=== PATIENT | female | born 1970 | race Caucasian/White ===

== ENCOUNTER 2025-03-02 00:35 | Day surgery (SDC) | payer BC, SELFPAY ==
[2024-12-01 15:02] VITALS: BMI 25.0
--- OUTSIDE RECORDS SUMMARY | 2024-12-15 02:57 | XMS_ITS | Referral Summary ---
Author Organization [id number] Address [address] [place] [phone] Care Team Providers Care Rooming House Inspector Name Role Phone Ashley Tomlin MD Primary Care Provider Encounters Date Type Department Care Team Description 12/11/2024 Telephone [facility] Primary Care [address] [place] [phone] Ashley Tomlin MD Symptom Based Call 11/10/2024 [facility] [address] [place] [phone] Ashley Mcdermott MD 11/03/2024 10:35 AM PATTERN DATA OPERATOR Office Visit [facility] [address] [place] [phone] Ashley Mcdermott MD Routine gynecological examination (Primary Dx); Pap smear for cervical cancer screening; Screening mammogram for breast cancer; Extremely dense tissue of both breasts on mammography; Yeast infection of the skin; Cervical cancer screening 09/22/2024 Orders Only [facility] [address] [place] [phone] Ashley Mcdermott MD 09/22/2024 Telephone [facility] Primary Care [address] [place] [phone] Ashley Tomlin MD Medical Question/Miscellaneous 09/22/2024 Telephone [facility] [address] [place] [phone] Ashley Mcdermott MD Rx needed (P) from Last 3 Months Allergies No known active allergies Medications nystatin powderIndicatio ns:Yeast infection of the skin Apply topically 4 (four) times a day 15 g 1 5 11/03/19 26 Active Active Problems Problem Noted Date Diagnosed Date Dense breasts 10/31/2023 Osteoporosis screening 10/31/2023 Mixed hyperlipidemia 08/22/2022 Assessment & Plan (08/22/2022 9:03 AM CDT): I recommend low fat diet. Avoid fried fatty foods, butter, red meats, full fat dairy products, baked goods. Focus diet on lean protein (skinless chicken, seafood, nuts, legumes) and non-starchy veggies. Immunizations Immunization Administration Dates Next Due Influenza, Unspecified 08/04/2024(Deferr ed: Patient Refused),07/22/2022,07/25/2021(Deferred: Patient Refused) Social History Tobacco Use Types Packs/Day Years Used Date Smoking Tobacco: Never Tobacco Cessation:Counseling Given: Not Answered AUDIT-C Answer Date Recorded Q1: How often do you have a drink containing alcohol? Never 12/27/2023 Q2: How many drinks containi ng alcohol do you have on a typical day when you are drinking? Patient does not drink Q3: How often do you have si x or more drinks on one occasion? Never 12/27/2023 PHQ-2 Answer Date Recorded PHQ-2 Total Score (If total score is 3 or more points, staff should administer the PHQ-9) 0 08/04/2024 Comments No Sex and Gender Information Value Date Recorded Sex Assigned at Not on file Legal Sex Female 8:17 AM PATTERN DATA OPERATOR Gender Identity Not on file Sexual Orientation Not on file Last Filed Vital Signs Vital Sign Reading Time Taken Comments Blood Pressure 112/82 11/03/2024 10:46 AM PATTERN DATA OPERATOR Pulse 79 08/04/2024 2:33 PM CDT Temperature 36.6 C (97.9 F) 08/04/2024 2:33 PM CDT Respiratory Rate - - Oxygen Saturation 98% 08/04/2024 2:33 PM CDT Inhaled Oxygen Concentration - - Weight 74.4 kg (164 lb) 11/03/2024 10:46 AM PATTERN DATA OPERATOR Height 162.6 cm (5' 4 ) 08/04/2024 2:33 PM CDT Body Mass Index 28.15 08/04/2024 2:33 PM CDT Plan of Treatment Not on file Procedures Procedure Name Priority Date/Time Associated Diagnosis Comments SCAN - RADIOLOGY/IMAGING 11/10/2024 8:26 AM PATTERN DATA OPERATOR PAP AND HPV, REFLEX TO HPV GENOTYPES Routine 11/03/2024 11:28 AM PATTERN DATA OPERATOR Cervical cancer screening MAMMOGRAPHY Routine 11/09/2022 COLONOSCOPY Routine 05/07/2018 from Last 3 Months or Most Recently Relevant to Health Maintenance Results * SCAN - RADIOLOGY/IMAGING (11/10/2024 8:26 AM PATTERN DATA OPERATOR) Anatomical Region Laterality Modality Other Ashley Mcdermott MD Edited Result - Final * Pap and HPV, reflex to HPV Genotypes (11/03/2024 11:28 AM PATTERN DATA OPERATOR) Clinical indication Comment [facility] - 01 Comment: NEGATIVE FOR INTRAEPITHELIAL LESION OR MALIGNANCY. CELLULAR CHANGES ASSOCIATED WITH ATROPHY ARE PRESENT. Specimen adequacy: Comment [facility] - 01 Comment: Satisfactory for evaluation. Endocervical component may not be distinguished in cases of atrophy. Clinician provided ICD10 Comment [facility] - 01 Comment:Z12.4 Performed by Comment [facility] - 01 Comment:Clarice Saleh, Cytot echnologist (ASCP) . . [facility] - 01 Note: Comment [facility] - 01 Comment: The Pap smear is a screening test designed to aid in the detection of premalignant and malignant conditions of the uterine cervix. It is not a diagnostic procedure and should not be used as the sole means of detecting cervical cancer. Both false-positive and false-negative reports do occur. Test methodology Comment [facility] - 01 Comment: This liquid based ThinPrep(R) pap test was screened with the use of an image guided system. HPV Aptima Negative Negative [facility] 02 Comment: This nucleic acid amplification test detects fourteen high-risk HPV types (16,18,31,33,35,39,45,51,52,56,58,59,66,68) without differentiation. HPV Genotype Reflex Comment [facility] - 01 Comment:Criteria not met, HP V Genotype not performed. Thin prep-Endocervical 11/03/2024 11:28 AM PATTERN DATA OPERATOR 11/03/2024 Narrative [facility] - 11/05/2024 4:09 PM PATTERN DATA OPERATOR Performed at: - [facility] [id number] Marine Fisheries Technician: Leandra Hodgson MD, Phone: [phone] Performed at: - [facility] [id number] Marine Fisheries Technician: Leandra Hodgson MD, Phone: [phone] Specimen Comment: Source.............Cervix;Endocervix Specimen Comment: No. of containers..01 ThinPrep Vial Ashley Mcdermott MD LAB CYTOLOGY ORDERABLES Final Result [facility] - 01 [facility] 02 * (ABNORMAL) MAMMOGRAPHY (11/09/2022) Mammography Abnormal Maryam Samuel MD HEALTH MAINTENANCE Final Result * COLONOSCOPY (05/07/2018) Scribed Colonoscopy Normal Maryam Samuel MD HEALTH MAINTENANCE Final Result from Last 3 Months or Most Recently Relevant to Health Maintenance Insurance [facility] ANTHEM ACCESS ANTHEM ACCESS Care Teams Rooming House Inspector Relationship Specialty Start Date End Date Ashley Tomlin MD [address] [place], [place] [phone] (Work) PCP - General Internal Medicine 08/22/22
--- OUTSIDE RECORDS SUMMARY | 2024-12-15 02:57 | XMS_ITS | Clinical Summary ---
Author Organization [facility] Address [address] [place] [id number] Care Team Providers Care Sheet Metal Superintendent Name Role Phone Unavailable Primary Care Provider Unavailabl e Social History Tobacco Use Types Packs/Day Years Used Date Smoking Tobacco: Never Assessed Comments Unknown Sex and Gender Information Value Date Recorded Sex Assigned at Not on file Legal Sex Female 7:24 PM CDT Gender Identity Not on file Sexual Orientation Not on file Plan of Treatment Health Maintenance Due Date Last Done Comments Cervical Cancer Screening Pa p Smear (Age 30 to 64) Every 3 Years 1970 Colorectal Cancer Screening Colonoscopy (10 Years) 1970 Annual Physical 1973 Hepatitis C 1988 DTaP, Tdap and Td Vaccines ( 1 - Tdap) 1989 Hepatitis B Vaccines (1 of 3 - 19+ 3-dose series) 1989 Cervical Cancer Screening Pa p with HPV Testing (Age 30 to 64) Every 5 Years 2000 Cervical Cancer Screening with HPV 2000 Mammogram Screening 2010 Zoster Vaccines (1 of 2) 2020 COVID-19 Vaccine (2023-2 5 season) 2024 Influenza Adult (#1) 2024 Meningococcal B Vaccine Aged Out No l onger eligible based on patient's age to complete this topic Meningococcal Vaccine Aged Out No fermín fabiola eligible based on patient's age to complete this topic Pneumococcal Vaccine: Pediat rics (0 to 5 Years) and At-Risk Patients (6 to 64 Years) Aged Out No longer eligible b ased on patient's age to complete this topic RSV Immunizations Under 20 Months Aged Out No longer eligible based on patient's age to complete this topic
--- OUTSIDE RECORDS SUMMARY | 2024-12-15 02:57 | XMS_ITS | Clinical Summary ---
Author Organization [facility] Address [address] [facility] [place] [address] Phone Care Team Providers Care Manager Client Name Role Phone Rodolfo Harris MD Primary Care Provider + Allergies No known active allergies Medications predniSONE (DELTASONE) 20 mg tablet Take 3 Tablets (60 mg) by mouth daily for 2 days, THEN 2 Tablets (40 mg) daily for 2 days, THEN 1.5 Tablets (30 mg) daily for 2 days, THEN 1 Tablet (20 mg) daily for 2 days. 15 Tablet 12/13/2024 8:59 PM BIOMASS PLANT TECHNICIAN 12/13/2024 Active hydrOXYzine HCL (ATARAX) 25 mg tablet Take 1 Tablet (25 mg) by mouth 3 times daily as needed for Itching or Anxiety. 30 Tablet 12/13/2024 8:59 PM BIOMASS PLANT TECHNICIAN 12/13/2024 Active Active Problems Patient Care Coordination No te Formatting of this note migh t be different from the original. Srinivasa Hodges MD--Procedures Nurse ([facility] @ ) Dennis Quiroz MD--Procedures Nurse ([facility] @ ) Problem Noted Date Diagnosed Date Hyperlipidemia 10/26/2024 History of palpitations 04/16/2023 Pain of left upper extremity 05/14/2018 Resolved Problems Problem Noted Date Diagnosed Date Resolved Date Palpitations 05/14/2018 10/26/2024 Encounters Date Type Department Care Team Description 12/13/2024 7:19 PM BIOMASS PLANT TECHNICIAN - 12/13/2024 8:44 PM [facility] Emergency [facility] Emergency Department [address] [place] [address] Zenon Langley MD Maculopapular rash, generalized (Primary Dx); Stressful life event affecting family Discharge Disposition: Home or Self Care 12/13/2024 Travel 12/09/2024 External Device Data [facility] ABSTRACTION Provider, Abstract 11/12/2024 External Device Data [facility] ABSTRACTION Provider, Abstract 11/12/2024 External Device Data [facility] ABSTRACTION Provider, Abstract 10/28/2024 External Device Data [facility] ABSTRACTION Provider, Abstract 10/23/2024 Telephone [facility] At [address] [place] [address] Srinivasa Hodges MD CAC score 10/21/2024 Telephone [facility] [address] [place] [address] Calciun score test results 10/20/2024 12:42 PM BIOMASS PLANT TECHNICIAN - 10/20/2024 11:59 PM BIOMASS PLANT TECHNICIAN Hospital Encounter [facility] [address] [place] [address] Srinivasa Hodges MD Discharge Disposition: Home or Self Care 10/10/2024 1:30 PM BIOMASS PLANT TECHNICIAN Office Visit [facility] [address] [place] [address] Srinivasa Hodges MD Hyperlipidemia, unspecified hyperlipidemia type (Primary Dx); Overweight (BMI 25.0-29.9); History of palpitations 09/22/2024 Telephone [facility] [address] [place] [address] Srinivasa Hodges MD MEDICAL CONCERNS from Last 3 Months Family History Medical History Relation Name Comments Valvular Heart Disease Mother Relation Name Status Comments Mother Social History Tobacco Use Types Packs/Day Years Used Date Smoking Tobacco: Never Smokeless Tobacco: Never Alcohol Use Standard Drinks/Week Comments Not Asked 0 (1 standard drink = 0.6 oz pur e alcohol) Feeling Safe Answer Date Recorded Are you in a relationship wi th someone who hurts you emotionally and/or physically? No 12/13/2024 Comments Unknown Sex and Gender Information Value Date Recorded Sex Assigned at Not on file Legal Sex Female 3:53 PM CDT Gender Identity Not on file Sexual Orientation Not on file Last Filed Vital Signs Vital Sign Reading Time Taken Comments Blood Pressure 141/72 12/13/2024 8:22 PM BIOMASS PLANT TECHNICIAN Pulse 98 12/13/2024 8:22 PM BIOMASS PLANT TECHNICIAN Temperature 36.7 C (98 F) 12/13/2024 8:22 PM BIOMASS PLANT TECHNICIAN Respiratory Rate 20 12/13/2024 8:22 PM BIOMASS PLANT TECHNICIAN Oxygen Saturation 100% 12/13/2024 8:22 PM BIOMASS PLANT TECHNICIAN Inhaled Oxygen Concentration - - Weight 73 kg (161 lb) 10/10/2024 12:52 PM BIOMASS PLANT TECHNICIAN Height 167.6 cm (5' 6 ) 10/10/2024 12:52 PM BIOMASS PLANT TECHNICIAN Body Mass Index 25.99 10/10/2024 12:52 PM BIOMASS PLANT TECHNICIAN Plan of Treatment Upcoming Encounters Date Type Department Care Team (Late st Contact Info) Description 10/12/2025 1:30 PM BIOMASS PLANT TECHNICIAN Office Visit [facility] At [facility] [address] [facility] [address] [place] [address] Srinivasa Hodges MD [address] [place] [address] [address] [place] [address] Health Maintenance Due Date Last Done Comments Pre-Diabetes and Diabetes Screening 1970 DTAP/TDAP/TD VACCINES (1 - Tdap) 1989 HEPATITIS B VACCINES (1 of 3 - 19+ 3-dose series) 1989 CERVICAL CANCER SCREENING 2000 BREAST CANCER SCREENING 2010 COLORECTAL SCREENING 2015 Colorectal Cancer Screening 2015 FIT-DNA Q 3 years 2015 FIT/FOBT Q 1 year 2015 Flex Sig/CT Colonography Q 5 years 2015 ZOSTER VACCINE (1 of 2) 2020 INFLUENZA VACCINE (#1) 2024 Preventative Visit- Commercial Completed 0 11/03/2024, 04/16/2024, 10/31/2023, Additional history exists Procedures Procedure Name Priority Date/Time Associated Diagnosis Comments CT CORONARY CALCIUM SCORE Routine 10/20/2024 12:55 PM BIOMASS PLANT TECHNICIAN Hyperlipidemia, unspecified hyperlipidemia type LIPID PANEL Routine 10/08/2024 7:20 AM BIOMASS PLANT TECHNICIAN Mixed hyperlipidemia from Last 3 Months Results * CT CORONARY CALCIUM SCORE (10/20/2024 12:55 PM BIOMASS PLANT TECHNICIAN) 10/20/2024 12:5 1 PM BIOMASS PLANT TECHNICIAN Impressions INTERFACE SYSTEM - 10/20/2024 1:46 PM BIOMASS PLANT TECHNICIAN IMPRESSION: Calcium Score: 0 consistent with very low risk for future cardiac events. DICTATION LOCATION: [address] Narrative INTERFACE SYSTEM - 10/20/2024 1:46 [address] BIOMASS [address]ANT TECHNICIAN CT CARDIAC SCORING - Coronary Artery Calcium (CAC) Score. DATE: 10/20/2024 12:55 PM HISTORY: Atherosclerotic cardiovascular disease (ASCVD) risk stratification. Procedure: A standard prospective cardiac-gated CAC scoring protocol. CAC scan was interpreted using the Agatston's Scoring formula. An age/sex/race-adjusted score percentile was derived by comparison of the score with Multi- Ethnic Study of Atherosclerosis (MOSQUERA) reference population. The examination was performed with the adjustment of mA according to the patient size and/or the use of Iterative Reconstruction Technique. FINDINGS: Great Vessels (diameter in cm) Ascending Aorta: 3.7 cm Descending Aorta: 2.3 cm Main Pulmonary Artery: 3 cm Pericardium: Normal. Extra-coronary calcification: Aortic Valve: No calcification. Thoracic Aorta: No calcification. Mitral Annulus: No calcification. Other findings: None Total Agatston CAC Score: 0 Left main: 0 LAD: 0 LCX: 0 RCA/PDA: 0 CAC-DRS Category: A0 A = Agatston scoring The regional distribution/total CACS does not warrant further evaluation. CAC-DRS: Coronary Artery Calcium Data and Reporting System. An expert consensus Document of the Society of Cardiovascular Computed Tomography (SCCT). J Cardiovasc Comp Demarcus; 12 (2018):185-191. Score: 0 Agatston's Score: 0 Plaque burden: No identifiable atherosclerotic plaque. Risk: Very low. Probability of significant CAD: Very unlikely. Score: 1 Agatston's Score: 1-99 Plaque burden: Mild identifiable plaque. Risk: Mildly increased. Probability of significant CAD: Mild or minimal coronary stenosis likely. Score: 2 Agatston's Score: 100-299 Plaque burden: Moderate identifiable plaque. Risk: Moderately increased. Probability of significant CAD: Moderate likelihood of significant stenosis. Score: 3 Agatston's Score: > 300 Plaque burden: Extensive plaque burden. Risk: Severely increased Probability of significant CAD: High likelihood Procedure Note Angel Simpson MD - 10/20/2024 CT CARDIAC SCORING - Coronary Artery Calcium (CAC) Score. DATE: 10/20/2024 12:55 PM HISTORY: Atherosclerotic cardiovascular disease (ASCVD) risk stratification. Procedure: A standard prospective cardiac-gated CAC scoring protocol. CAC scan was interpreted using the Agatston's Scoring formula. An age/sex/race-adjusted score percentile was derived by comparison of the score with Multi- Ethnic Study of Atherosclerosis (MOSQUERA) reference population. The examination was performed with the adjustment of mA according to the patient size and/or the use of Iterative Reconstruction Technique. FINDINGS: Great Vessels (diameter in cm) Ascending Aorta: 3.7 cm Descending Aorta: 2.3 cm Main Pulmonary Artery: 3 cm Pericardium: Normal. Extra-coronary calcification: Aortic Valve: No calcification. Thoracic Aorta: No calcification. Mitral Annulus: No calcification. Other findings: None Total Agatston CAC Score: 0 Left main: 0 LAD: 0 LCX: 0 RCA/PDA: 0 CAC-DRS Category: A0 A = Agatston scoring The regional distribution/total CACS does not warrant further evaluation. CAC-DRS: Coronary Artery Calcium Data and Reporting System. An expert consensus Document of the Society of Cardiovascular Computed Tomography (SCCT). J Cardiovasc Comp Demarcus; 12 (2018):185-191. Score: 0 Agatston's Score: 0 Plaque burden: No identifiable atherosclerotic plaque. Risk: Very low. Probability of significant CAD: Very unlikely. Score: 1 Agatston's Score: 1-99 Plaque burden: Mild identifiable plaque. Risk: Mildly increased. Probability of significant CAD: Mild or minimal coronary stenosis likely. Score: 2 Agatston's Score: 100-299 Plaque burden: Moderate identifiable plaque. Risk: Moderately increased. Probability of significant CAD: Moderate likelihood of significant stenosis. Score: 3 Agatston's Score: > 300 Plaque burden: Extensive plaque burden. Risk: Severely increased Probability of significant CAD: High likelihood IMPRESSION: Calcium Score: 0 consistent with very low risk for future cardiac events. DICTATION LOCATION: Location [address] [place] [address] [place] [address]iv[address] Hod[address] ORDERABLES Final Result Performing Organization Address City/[facility]/ZIP Co de Phone Number INTERFACE SYSTEM Refer to clinic/hospital department * (ABNORMAL) LIPID PANEL (10/08/2024 7:20 AM BIOMASS PLANT TECHNICIAN) CHOLESTEROL 241(H) <200 mg/dL [facility] HDL 66 > OR = 50 mg/dL [facility] TRIGLYCERIDE 93 <150 mg/dL [facility] LDL CALCULATED 155(H) mg/dL (calc) [facility] Comment: Reference range: <100 Desirable range <100 mg/dL for primary prevention; <70 mg/dL for patients with CHD or diabetic patients with > or = 2 CHD risk factors. LDL-C is now calculated using the Wilmer calculation, which is a validated novel method providing better accuracy than the Friedewald equation in the estimation of LDL-C. David SHAFFER et al. ASHLEY. 2013;310(19): 7937-2569 (http://education.HALKAR/faq/JHE454) CHOL/HDL RATIO 3.7 <5.0 (calc) [facility] NON-HDL CHOLESTEROL 175(H) <130 mg/dL (calc) [facility] Comment: For patients with diabetes plus 1 major ASCVD risk factor, treating to a non-HDL-C goal of <100 mg/dL (LDL-C of <70 mg/dL) is considered a therapeutic option. FASTING:YES FASTING: YES Test Performed at: [facility] [address] [place] [address] Candice Paris MD Blood 10/08/2024 7:20 AM BIOMASS PLANT TECHNICIAN 10/08/2024 7:20 AM BIOMASS PLANT TECHNICIAN us Srinivasa Hodges MD CHEMISTRY ORDERABLES Final R esult [facility] [phone] [facility] [address] [place] [address] from Last 3 Months Insurance BCBS BLUE ACCESS/TRUE BLUE PPO RX [employer] PLANS (INTERNAL) [facility] RX EXPRESS SCRIP[employer] Express RX [employer] Commercial Care Teams Manager Client Relationship Specialty Start Date End Date Rodolfo Harris MD [address] [place] [phone] PCP - General Internal Medicine 04/29/18
--- OUTSIDE RECORDS SUMMARY | 2024-12-15 02:57 | XMS_ITS | Patient Health Summary ---
Author Organization [facility] Address [address] [place] [address] Care Team Providers Care Insurance Producer Name Role Phone Rodolfo Harris MD Primary Care Provider [phone] Note from [facility][note 3],non-owned Affiliates and Associated Physician Practices is amultiple site organization consisting of ambulatory clinics and hospital sitesin [place], [place], [place] and [place]. This disclosure is being madepursuant to the Care Everywhere program and may not contain all information available regarding this patient. Last updated 18.[facility] Social History Tobacco Use Types Packs/Day Years Used Date Smoking Tobacco: Never Alcohol Use Standard Drinks/Week Comments No 0 (1 standard drink = 0.6 oz pur e alcohol) Sex and Gender Information Value Date Recorded Sex Assigned at Not on file Gender Identity Not on file Sexual Orientation Not on file Procedures * DERMATOPATHOLOGY(Performed 06/10/2024) Results * DERMATOPATHOLOGY (06/10/2024 3:33 AM CDT) Case Report Dermatopathology Report Case: [id number] Authorizing Provider: Reggie Mcintosh MD Collected: 06/10/2024 03:33 AM Ordering Location: [facility] - Received: 06/11/2024 01:48 PM DermPath Lab Pathologist: Yaniv Huynh MD Specimen: Skin, left anteromedial superior bicep 4 2:49 PM CDT DERMATOPATHOLOGY LABORATORY Final Diagnosis Specimen A. 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 The specimen consists of a punch biopsy measuring 5x5x5 mm. Jar 0. 2:49 PM CDT DERMATOPATHOLOGY LABORATORY Microscopic Description Specimen A. SKIN, left anteromedial superior bicep: There is focal parakeratosis and mild spongiosis of the epidermis. In the dermis there is a mainly superficial perivascular lymphoid infiltrate. Periodic acid-Micaela (PAS) stain fails to highlight fungal elements in the available sections. COMMENT: These histological findings can be seen in an eczematous dermatitis. Clinicopathologic correlation is recommended. 2:49 PM CDT DERMATOPATHOLOGY LABORATORY Disclaimer An external and internal positive and negative controls are appropriate for the histochemical, immunohistochemical and immunofluorescence stain(s) in this case (if any), except where stated explicitly. The performance characteristics of the stain(s) cited in this report were developed and its performance characteristic determined by the Dermatopathology Laboratory at [facility], directed by Dr. Kristi Huynh. These tests need not be, and therefore are not, approved by the [place] Food and Drug Administration. The tests are used for clinical purposes. Billing Codes Specimen Charges Stain Charges 56747 1 [id number] 1 4 2:49 PM CDT DERMATOPATHOLOGY LABORATORY Embedded Images 2:49 PM CDT DERMATOPATHOLOGY LABORATORY Pathology/Cytolo gy TISSUE SPECIMEN FROM SKIN / Unknown 06/10/2024 3:33 AM CDT 06/11/2024 1:48 PM CDT Reggie Mcintosh MD LAB - PATHOLOGY/CYTO LOGY ORDERABLES DERMATOPATHOLOGY LABORATORY [facility] - Department of Dermatology [facility] Medicine [address] [place] [address], [address] [phone] Care Teams Insurance Producer Relationship Specialty Start Date End Date Rodolfo Harris MD [address] [place] [address] PCP - General 12/03/15
--- OUTSIDE RECORDS SUMMARY | 2024-12-15 02:57 | XMS_ITS | Encounter Summary ---
Author Organization [facility] Address [address] [place] [address] Care Team Providers Care Battery Vent Plug Inserter Name Role Phone Rodolfo Harris MD Primary Care Provider + Reason for Visit * Reason Comments Rash Hives/rash starting Sunday night. Called PCP, returned call on and got a steroid shot. Pt reports that hives/rash has gotten worse. Has been taking benadryl and topiocal creams without relief. Pt endorses stress in her life, unsure if it's a stress reaction or allergic reaction * Auth/Cert (Routine) Specialty Diagnoses / Procedures Referred By Alyse bautista Referred To Contact Emergency Medicine [facility] Emergency Department [address] [place] [address] Phone: tel: fax: Referral ID Status Reason Start Date Expiration Date Visits Re quested Visits Authorized [id number] 1 1 Encounter Details Date Type Department Care Team (Late st Contact Info) Description 12/13/2024 7:19 PM FLAT POLISHER - 12/13/2024 8:44 PM FLAT POLISHER Emergency [facility] Emergency Department [address] [place] [address] [place] [address] [place] [address] Maculopapular rash, generalized (Primary Dx); Stressful life event affecting family Discharge Disposition: Home or Self Care Social History Tobacco Use Types Packs/Day Years [...] on file Sexual Orientation Not on file documented as of this encounter Last Filed Vital Signs Vital Sign Reading Time Taken Comments Blood Pressure 141/72 12/13/2024 8:22 PM FLAT POLISHER Pulse 98 12/13/2024 8:22 PM FLAT POLISHER Temperature 36.7 C (98 F) 12/13/2024 8:22 PM FLAT POLISHER Respiratory Rate 20 12/13/2024 8:22 PM FLAT POLISHER Oxygen Saturation 100% 12/13/2024 8:22 PM FLAT POLISHER Inhaled Oxygen Concentration - - Weight - - Height - - Body Mass Index - - documented in this encounter Discharge Instructions * Discharge Instructions* Zenon Langley MD - 12/13/2024 8:13 PM FLAT POLISHER Return to ER if you develop difficulty breathing, a rash that involves her mouth, the palms or soles of her hands or feet, fever with a rash, desquamation of the skin, or anything else concerning. Thank you for choosing the [facility] Emergency Department for your care. After discharge, youwill be receiving a survey regarding your care; we are specifically focusing on listening to your concerns. If you have any additional questions, please ask to speak to me once again. Thanks for allowing me to take care of you today. POLISHER * Attachments The following attachments cannot be sent through Care Everywhere. * Rash (Polish) documented in this encounter Medications at Time of Discharge predniSONE (DELTASONE) 20 mg tablet Take 3 Tablets (60 mg) by mouth daily for 2 days, THEN 2 Tablets (40 mg) daily for 2 days, THEN 1.5 Tablets (30 mg) daily for 2 days, THEN 1 Tablet (20 mg) daily for 2 days. 15 Tablet 12/13/2024 8:59 PM FLAT POLISHER 12/13/2024 12/21/2024 hydrOXYzine HCL (ATARAX) 25 mg tablet Take 1 Tablet (25 mg) by mouth 3 times daily as needed for Itching or Anxiety. 30 Tablet 12/13/2024 8:59 PM FLAT POLISHER 12/13/2024 documented as of this encounter ED Notes * Nidia Avery RN - 12/13/2024 8:22 PM CST Patient verbalized understanding of discharge instructions and medications reviewed, ambulated out of ED in no s/s in distress. Pt belongings gathered. Oriented x4 and vitals per flowsheet POLISHER * Laura Hodge RN - 12/13/2024 7:45 PM CST Chief Complaint Patient presents with Rash Hives/rash starting Sunday. Called PCP, returned call on and got a steroid shot. Ptreports that hives/rash has gotten worse. Has been taking benadryl and topiocal creams without relief. Pt endorses stress in her life, unsure if it's a stress reaction or allergic reaction This RN agrees with triage note. Patient presents to room 30 with c/o rash present to legs, arms and abdomen. Rash more present on legs and right arm. Pictures of legs and right arm placed in chart. Patient states, rash started on legs. I started a new job recently and noticed the rash more when I am at work. I am supposed to have an appointment with my doctor on Sunday, but noticed it worsened today. Steroidal agents and topical creams prescribed prior to visit. Patient endorses rash more present with stressful situations. Patient up to date on vaccinations. States, I have not received a pneumonia, shingles or flu shot. Patient takes vitamins. States, I am fairly healthy. No fevers, SOB, or chest pain. Call light within reach. POLISHER * Zenon Langley MD - 12/13/2024 7:45 PM CST HISTORY OF PRESENT ILLNESS Dolly Stanton is a 54 y.o. patient with a history of HLD and rare palpitations who presents to the ED for rash onset Dina night. 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 She started a new job on 11/26/2024 and endorses an increase in stressdue to new medical coding and billing requirements. She states that on Sunday, she called her control and recovery special tactics for evaluation of her rash, and she was seen on and given a catalog shot. She says that she can feel the rash breaking out all over her body and she is worried that it will spread to her face, so she came into the ED today. Endorses increased stress, anxiety. The patient denies itching, sore throat, fever. Denies abnormalities in the palms, soles, and mouth. Denies use of new soaps and denies vaccinations for Influenza and shingles. Denies sick contacts at work. 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 She regularly gets massages. Denies smoking, taking medications. She called her PCP on and received a steroid shot. Endorses use of topical creams and PO intake of Benadryl. She presents to the ED because her rash has worsened since then. The patient saw her sergeant of officers Dr. Quiroz on 06/30/2019 for palpitations. Physician(s): Rodolfo Harris MD History provided by: The patient and medical records Arrived by: Private vehicle Arrived from: Home PAST MEDICAL HISTORY REVIEWED MEDICAL: Patient has a past medical history of Patient denies relevant medical history. SURGICAL: Patient has no past surgical history on file. ALLERGIES Patient has no known allergies. PHYSICAL EXAM INITIAL VS BP: (!) 147/77 (12/13/241907), Heart Rate: (!) 105 bpm (12/13/241907), Resp: 20 (12/13/241907), Pulse: (!) 105 (12/13/241907), Temp: 97.6 ??F (36.4 ??C) (12/13/241907), Temp src: Oral (12/13/241907), SpO2: 100 % (12/13/241907), Height: (not recorded), Weight: (not recorded), BMI (Calculated): (not recorded) No LMP recorded. Physical Exam Vitals and nursing note reviewed. Exam conducted with a plant chief present. Constitutional: General: She is not in acute distress. Appearance: Normal appearance. She is not ill-appearing or toxic-appearing. HENT: Head: Normocephalic and atraumatic. Nose: Nose normal. Mouth/Throat: Mouth: Mucous membranes are moist. Eyes: Extraocular Movements: Extraocular movements intact. Pupils: Pupils are equal, round, and reactive to light. Cardiovascular: Rate and Rhythm: Normal rate and regular rhythm. Pulmonary: Effort: Pulmonary effort is normal. Abdominal: General: Abdomen is flat. Tenderness: There is no abdominal tenderness. Musculoskeletal: Cervical back: Normal range of motion and neck supple. Right lower leg: No edema. Left lower leg: No edema. Skin: General: Skin is warm and dry. Capillary Refill: Capillary refill takes less than 2 seconds. Findings: Rash present. Comments: Maculopapular blanching rash on the lower extremities, upper extremities, spares the mouth, spares the palms. Not desquamating. Neurological: General: No focal deficit present. Mental Status: She is alert and oriented to person, place, and time. Sensory: No sensory deficit. Motor: No weakness. Psychiatric: Mood and Affect: Mood normal. Behavior: Behavior normal. DIAGNOSTICS LAB: No data to display RADIOLOGY: No orders to display EKG: N/A PROCEDURES Procedures MEDICAL DECISION MAKING AND PLAN OF CARE --On initial evaluation, saw and examined the patient. Discussed plan for symptom management. Patient understands and agrees with the plan. 8:15 PM: Patient's symptoms have been managed. Updated pt on their plans. Follow up and return precautions discussed. Patient understands and agrees with the plan. All questions and concerns addressed. The patient is stable for discharge. ED provider and ED nurse verbally discussed patient plan of care at this time. Medical Decision Making Summary: 54-year-old female presents to the ER with blanching maculopapular rash on her lower extremities and upper extremities. She has not been ill, is nontoxic-appearing. She saw her dermatologistwho gave her 1 dose of Kenalog. No obvious triggers. Patient to be put on an 8-day course of a prednisone taper, hydroxyzine for itching and also for increased anxiety due to life stressors. Differential diagnosis includes, but is not limited to, environmental rash, food allergy, viral exanthem, Low suspicion of Brenner-Dale syndrome, systemic infection. By virtue of history and physical, some of these diagnoses can be excluded. Imaging was interpreted by me and notable for N/A. Non-ED notes reviewed: previous medical records. Additional information obtained from independent historian, None. The following social determinants of health potentially complicated the patient's course and were considered in my plan of care: Stress at home and work Risk Prescription drug management. Clinical Scoring & Consults Discharge Medication List as of 12/13/2024 8:13 PM START taking these medications Details predniSONE (DELTASONE) 20 mg tablet Take 3 Tablets (60 mg) by mouth daily for 2 days, THEN 2 Tablets (40 mg) daily for 2 days, THEN 1.5 Tablets (30 mg) daily for 2 days, THEN 1 Tablet (20 mg) daily for 2 days., Disp-15 Tablet, R-0 hydrOXYzine HCL (ATARAX) 25 mg tablet Take 1 Tablet (25 mg) by mouth 3 times daily as needed for Itching or Anxiety., Disp-30 Tablet, R-0 LAST VS BP: (!) 141/72 (12/13/242021), Heart Rate: 98 bpm (12/13/242021), Resp: 20 (12/13/242021), Pulse: 98 (12/13/242021), Temp: 98 ??F (36.7 ??C) (12/13/242021), Temp src: Oral (12/13/242021), SpO2:100 % (12/13/242021) CLINICAL IMPRESSION Final diagnoses: [R21] Maculopapular rash, generalized (Primary) [Z63.79] Stressful life event affecting family DISPOSITION, EDUCATION AND MEDICATION RECONCILIATION Medications reconciled. See after visit summary for patient education on discharged patients. ED Disposition ED Disposition Discharge Condition Stable User Zenon Langley MD Date/Time Sat Dec 13, 2024 8:10 PM Comment -- ATTESTATION STATEMENTS This note has been prepared by Sheila Boyle acting as a scribe for Zenon Langley* on 12/13/2024 at 8:18 PM. The scribe's documentation has been prepared under my direction and personally reviewed by me, Zenon Langley*, in its entirety on 12/13/24 at 9:11 PM. I confirm that the note above accurately reflects all work, treatment, procedures, and medical decision making performed by me. POLISHER documented in this encounter Plan of Treatment Upcoming Encounters Date Type Department Care Team (Late st Contact Info) Description 10/12/2025 1:30 PM FLAT POLISHER Office Visit [facility] [place] [address] [place] [address] Srinivasa Hodges MD [facility] [address] [facility] [address] [place] [phone] documented as of this encounter Visit Diagnoses Diagnosis Maculopapular rash, generalized- Primary Rash and other nonspecific skin eruption Stressful life event affecting family Other family disruption documented in this encounter Care Teams Battery Vent Plug Inserter Relationship Specialty Start Date End Date Rodolfo Harris MD [address] [place] [address] PCP - General Internal Medicine 04/29/18 documented as of this encounter
--- OUTSIDE RECORDS SUMMARY | 2024-12-15 02:57 | XMS_ITS | Clinical Summary ---
Author Organization [facility] Address [address] [place] [address] Care Team Providers Care Scale Operator Name Role Phone Ashley Tomlin MD Primary Care Provider Allergies No known active allergies Medications nystatin [...] chicken, seafood, nuts, legumes) and non-starchy veggies. Encounters Date Type Department Care Team Description 12/11/2024 Telephone [facility] Primary [facility] [address] [place] [phone] Ashley Tomlin MD Symptom Based Call 11/10/2024 Orders Only [facility] [address] [place] [address] Office Building [address] [place] [address] Ashley Mcdermott MD 11/03/2024 10:35 AM HANDBAG FRAMER Office Visit [facility] [address] Office Building [address] [place] [phone] Ashley Mcdermott MD Routine gynecological examination (Primary Dx); Pap smear for cervical cancer screening; Screening mammogram for breast cancer; Extremely dense tissue of both breasts on mammography; Yeast infection of the skin; Cervical cancer screening 09/22/2024 Orders Only [facility] [address] [place] [address] Office [address] [place] [address] Ashley Mcdermott MD 09/22/2024 Telephone [facility] Primary Care [address] [place] [address] [place] [phone] Ashley Tomlin MD Medical Question/Miscellaneous 09/22/2024 Telephone [facility] [address] [place] [address] Ashley Mcdermott MD Rx needed (P) from Last 3 Months Immunizations Immunization Administration Dates Next Due Influenza, Unspecified 08/04/2024(Deferr ed: Patient Refused),07/22/2022,07/25/2021(Deferred: Patient Refused) Family History Medical History Relation Name Comments Pancreatic cancer Cousin Hyperlipidemia Father Prostate cancer Maternal Grandfather Hypertension Mother Lymphoma Mother Thyroid disease Mother Prostate cancer Mother's Brother Colon cancer Paternal Grandfather Relation Name Status Comments Cousin Father Alive Maternal Grandfather Mother Alive Mother's Brother Paternal Grandfather Sister 1 Alive Sister 2 Alive Social History Tobacco Use Types Packs/Day Years [...] on file Legal Sex Female 8:17 AM HANDBAG FRAMER Gender Identity Not on file Sexual Orientation Not on file Obstetrics History Last Filed Vital Signs Vital Sign Reading Time Taken Comments Blood Pressure 112/82 11/03/2024 10:46 AM HANDBAG FRAMER Pulse 79 08/04/2024 2:33 PM CDT Temperature 36.6 C (97.9 F) 08/04/2024 2:33 PM CDT Respiratory Rate - - Oxygen Saturation 98% 08/04/2024 2:33 PM CDT Inhaled Oxygen Concentration - - Weight 74.4 kg (164 lb) 11/03/2024 10:46 AM HANDBAG FRAMER Height 162.6 cm (5' 4 ) 08/04/2024 2:33 PM CDT Body Mass Index 28.15 08/04/2024 2:33 PM CDT Plan of Treatment Health Maintenance Due Date Last Done Comments Hepatitis C Screening 1970 DTaP/Tdap/Td Vaccine (1 - Tdap) 1981 Hepatitis B Screening 1988 Zoster Vaccine (1 of 2) 2020 Breast Cancer Screening-Mammogram 11/09/2023 11/09/2022, 11/02/2021 Influenza Vaccine (#1) 2024 07/22/2022 Depression Screening 08/04/2025 08/04/2024, 04/16/2024, 04/09/2023, Additional history exists Regular Well Visit/Exam 18-64 11/03/2025 11/03/2024, 04/16/2024, 10/31/2023, Additional history exists Cervical Cancer Screening 11/11/2025 11/03/2024, 07/2024 Colon Cancer Screening-Colonoscopy 05/07/2028 05/07/2018 Pneumococcal vaccine <65 Aged Out No longer eligible based on patient's age to complete this topic Procedures Procedure Name Priority Date/Time Associated Diagnosis Comments SCAN - RADIOLOGY/IMAGING 11/10/2024 8:26 AM HANDBAG FRAMER PAP AND HPV, REFLEX TO HPV GENOTYPES Routine 11/03/2024 11:28 AM HANDBAG FRAMER Cervical cancer screening MAMMOGRAPHY Routine 11/09/2022 COLONOSCOPY Routine 05/07/2018 from Last 3 Months or Most Recently Relevant to Health Maintenance Results * SCAN - RADIOLOGY/IMAGING (11/10/2024 8:26 AM HANDBAG FRAMER) Anatomical Region Laterality Modality Other Ashley Mcdermott MD Edited Result - Final * Pap and HPV, reflex to HPV Genotypes (11/03/2024 11:28 AM HANDBAG FRAMER) Clinical indication Comment [facility] - 01 Comment: NEGATIVE FOR INTRAEPITHELIAL LESION OR MALIGNANCY. CELLULAR CHANGES ASSOCIATED WITH ATROPHY ARE PRESENT. Specimen adequacy: Comment [facility] - 01 Comment: Satisfactory for evaluation. Endocervical component may not be distinguished in cases of atrophy. Clinician provided ICD10 Comment [facility] - Comment:Z12.4 Performed by Comment [facility] - Comment:Clarice Saleh, Cytot echnologist (ASC) . . [facility] - Note: Comment [facility] - Comment: The Pap smear is a screening test designed to aid in the detection of premalignant and malignant conditions of the uterine cervix. It is not a diagnostic procedure and should not be used as the sole means of detecting cervical cancer. Both false-positive and false-negative reports do occur. Test methodology Comment [facility] - Comment: This liquid based ThinPrep(R) pap test was screened with the use of an image guided system. HPV Aptima Negative Negative [facility] Comment: This nucleic acid amplification test detects fourteen high-risk HPV types (16,18,31,33,35,39,45,51,52,56,58,59,66,68) without differentiation. HPV Genotype Reflex Comment [facility] - Comment:Criteria not met, HP V Genotype not performed. Thin prep-Endocervical 11/03/2024 11:28 AM HANDBAG FRAMER 11/03/2024 Narrative [facility] - 11/05/2024 4:09 PM HANDBAG FRAMER Performed at: - [address] [id number] [employer]: Leandra Hodgson MD, Phone: [phone] Performed at: - [address] [id number] [employer]: Leandra Hodgson MD, Phone: [phone] Specimen Comment: Source.............Cervix;Endocervix Specimen Comment: No. of containers..01 ThinPrep Vial Ashley Mcdermott MD LAB CYTOLOGY ORDERABLES Final Result [facility] - 01 [facility] 02 * (ABNORMAL) MAMMOGRAPHY (11/09/2022) Mammography Abnormal Historical Provider HEALTH MAINTENANCE Final Result * COLONOSCOPY (05/07/2018) Scribed Colonoscopy Normal Historical Jimmie JACKMAN HEALTH MAINTENANCE Final Result from Last 3 Months or Most Recently Relevant to Health Maintenance Insurance Provident Link ACCESS [employer] ACCESS ANTH ACCESS Care Teams Scale Operator Relationship Specialty Start Date End Date Ashley Tomlin MD [address] [place] [id number] PCP - General Internal Medicine 08/22/22
--- OUTSIDE RECORDS SUMMARY | 2024-12-15 02:57 | XMS_ITS | Encounter Summary ---
Author Organization [facility] Address [address] [place] [address] Care Team Providers Care Well Logging Captain Name Role Phone Rodolfo Harris MD Primary Care Provider [phone] Encounter Details Date Type Department Care Team (Late st Contact Info) Description 06/11/2024 Lab Requisition [facility] - DermPath Lab [address] [place] [phone] Reggie Mcintosh MD [address] [place] [address] Social History Tobacco Use Types Packs/Day Years Used Date Smoking Tobacco: Never Alcohol Use Standard Drinks/Week Comments No 0 (1 standard drink = 0.6 oz pur e alcohol) Sex and Gender Information Value Date Recorded Sex Assigned at Not on file Gender Identity Not on file Sexual Orientation Not on file documented as of this encounter Plan of Treatment Not on file documented as of this encounter Procedures Procedure Name Priority Date/Time Associated Diagnosis Comments DERMATOPATHOLOGY Routine 06/10/2024 3:33 AM CDT documented in this encounter Results * DERMATOPATHOLOGY (06/10/2024 3:33 AM CDT) Case Report Dermatopathology Report Case: [id number] Authorizing Provider: Reggie Mcintosh MD Collected: 06/10/2024 03:33 AM Ordering Location: [facility] - Received: 06/11/2024 01:48 PM DermPath Lab Pathologist: Yaniv Huynh MD Specimen: Skin, left anteromedial superior bicep 2:49 PM CDT DERMATOPATHOLOGY LABORATORY Final Diagnosis Specimen A. 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 Kristi Huynh. These tests need not be, and therefore are not, approved by the [place] Food and Drug Administration. The tests are used for clinical purposes. Billing Codes Specimen Charges Stain Charges 88729 1 71133 1 4 2:49 PM CDT DERMATOPATHOLOGY LABORATORY Embedded Images 2:49 PM CDT DERMATOPATHOLOGY LABORATORY Pathology/Cytolo gy TISSUE SPECIMEN FROM SKIN / Unknown 06/10/2024 3:33 AM CDT 06/11/2024 1:48 PM CDT Reggie Mcintosh MD LAB - PATHOLOGY/CYTO LOGY ORDERABLES DERMATOPATHOLOGY LABORATORY [facility] - Department of Dermatology [address] [phone] documented in this encounter Visit Diagnoses Not on filedocumented in this encounter Care Teams Well Logging Captain Relationship Specialty Start Date End Date Rodolfo Harris MD [address] [place] [phone] PCP - General 12/03/15 documented as of this encounter
--- OUTSIDE RECORDS SUMMARY | 2024-12-15 02:57 | XMS_ITS | Referral Summary ---
Author Organization [facility] Address [address] [place] [address] Care Team Providers Care Supervisor Ornamental Ironworking Name Role Phone Rodolfo Harris MD Primary Care Provider [phone] Source Comments [facility],non[facility] Affiliates and Associated Physician Practices is amultiple site organization consisting of ambulatory clinics and hospital sitesin [place], [place], [place] and [place]. This disclosure is being madepursuant to the Care Everywhere program and may not contain all information available regarding this patient. Last updated 18.[facility] [email or web address] Social History Tobacco Use Types Packs/Day Years Used Date Smoking Tobacco: Never Alcohol Use Standard Drinks/Week Comments No 0 (1 standard drink = 0.6 oz pur e alcohol) Sex and Gender Information Value Date Recorded Sex Assigned at Not on file Gender Identity Not on file Sexual Orientation Not on file Plan of Treatment Not on file Care Teams Supervisor Ornamental Ironworking Relationship Specialty Start Date End Date Rodolfo Harris MD [address] [place] [address] PCP - General 12/03/15
--- OUTSIDE RECORDS SUMMARY | 2024-12-15 02:57 | XMS_ITS | Clinical Summary ---
Author Organization [facility] [employer] Address [address] [place] [address] Care Team Providers Care Fern Gatherer Name Role Phone Rodolfo Harris MD Primary Care Provider [phone] Source Comments [facility] [employer],non-[facility] Affiliates and Associated Physician Practices is amultiple site organization consisting of ambulatory clinics and hospital sitesin [place], [place], [place] and [place]. This disclosure is being madepursuant to the Care Everywhere program and may not contain all information available regarding this patient. Last updated 18.[facility] [employer] Family History Medical History Relation Name Comments Cancer - Skin, Non Melanoma Father Status: Alive None Known Mother Status: Alive Relation Name Status Comments Father Mother Social History Tobacco Use Types Packs/Day Years Used Date Smoking Tobacco: Never Alcohol Use Standard Drinks/Week Comments No 0 (1 standard drink = 0.6 oz pur e alcohol) Sex and Gender Information Value Date Recorded Sex Assigned at Not on file Gender Identity Not on file Sexual Orientation Not on file Plan of Treatment Health Maintenance Due Date Last Done Comments COLOGUARD (AGES 45-75) - COL ON CA SCREENING 1970 COLON MONITORING 1970 COLONOSCOPY - COLON CA SCREENING 1970 CT COLONOGRAPHY - COLON CA SCREENING 1970 Colorectal Cancer Screening 1970 FIT - COLON CA SCREENING 1970 FLEX SIG - COLON CA SCREENING 1970 LIPID TESTING 1970 MAMMOGRAM 1970 PAP SMEAR 1970 HIV SCREENING 1985 HEPATITIS C SCREENING 03/29/1988 DTAP/TDAP/TD VACCINES (1 - Tdap) 1989 HEPATITIS B VACCINE (1 of 3 - 19+ 3-dose series) 1989 PNEUMOCOCCAL VACCINE 50+ (1 of 1 - PCV) 2020 ZOSTER VACCINE (1 of 2) 2020 COVID-19 VACCINE (1 - 2023-2 5 season) 2024 INFLUENZA VACCINE (#1) 2024 DEPRESSION SCREENING 10/22/2024 HIB VACCINE Aged Out No longer eligi ble based on patient's age to complete this topic HPV VACCINE Aged Out No longer eligi ble based on patient's age to complete this topic MENINGOCOCCAL (Group B) VACCINE Aged Out No longer eligible based on patient's age to complete this topic MENINGOCOCCAL VACCINE Aged Out No fermín fabiola eligible based on patient's age to complete this topic PNEUMOCOCCAL VACCINE Aged Out No long er eligible based on patient's age to complete this topic Care Teams Fern Gatherer Relationship Specialty Start Date End Date Rodolfo Harris MD [address] [place] [address] PCP - General 12/03/15
[2025-02-18 08:33] VITALS: BMI 25.0
--- OUTSIDE RECORDS SUMMARY | 2025-03-02 00:37 | XMS_ITS | Clinical Summary ---
Author Organization [facility] Address [address] [place] [address] Care Team Providers Care Hydraulic Bull Riveter Operator Name Role Phone Unavailable Primary Care Provider [...] Screening with HPV 2000 Mammogram Screening 2010 Pneumococcal Vaccine: 50+ Ye ars (1 of 1 - PCV) 2020 Zoster Vaccines (1 of 2) 2020 COVID-19 Vaccine (2023-2 5 season) 2024 Meningococcal B Vaccine Aged Out No l onger eligible based on patient's age to complete this topic Meningococcal Vaccine Aged Out No fermín fabiola eligible based on patient's age to complete this topic RSV Immunizations Under 20 Months Aged Out No longer eligible based on patient's age to complete this topic
--- OUTSIDE RECORDS SUMMARY | 2025-03-02 00:37 | XMS_ITS | Encounter Summary ---
Author Organization [facility] Address [address] [place] [address] Care Team Providers Care Hearing Care Practitioner Name Role Phone Rodolfo Harris MD Primary Care Provider [phone] Encounter Details Date Type Department Care Team (Late st Contact Info) Description 06/11/2024 Lab Requisition [facility] - DermPath Lab [address] [place] [id number] Reggie Mcintosh MD [address] [place] [address] Social History Tobacco Use Types Packs/Day Years Used Date Smoking Tobacco: Never Alcohol Use Standard Drinks/Week Comments No 0 (1 standard drink = 0.6 oz pur e alcohol) Comments Unknown Sex and Gender Information Value Date Recorded Sex Assigned at Not on file Legal Sex Female 6:02 PM GENERAL FARM HAND Gender Identity Not on file Sexual Orientation Not on file documented as of this encounter Plan of Treatment Not on file documented as of this encounter Procedures Procedure Name Priority Date/Time Associated Diagnosis Comments DERMATOPATHOLOGY Routine 06/10/2024 3:33 AM CDT documented in this encounter Results * DERMATOPATHOLOGY (06/10/2024 3:33 AM CDT) Case Report Dermatopathology Report Case: [id number] Authorizing Provider: Reggie Mcintosh MD Collected: 06/10/2024 03:33 AM Ordering Location: [facility] - Received: 06/11/2024 01:48 PM DermPath Lab Pathologist: Yaniv Huynh MD Specimen: Skin, left anteromedial superior bicep 2:49 PM CDT DERMATOPATHOLOGY LABORATORY Final Diagnosis Specimen A. 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 The specimen consists of a punch biopsy measuring 5x5x5 mm. Jar 0. 2:49 PM T DERMATOPATHOLOGY LABORATORY Microscopic Description Specimen A. SKIN, [...] characteristic determined by the Dermatopathology Laboratory at [facility], directed by Dr. Kristi Huynh. These tests need not be, and therefore are not, approved by the [place] Food and Drug Administration. The tests are used for clinical purposes. Billing Codes Specimen Charges Stain Charges 90497 1 [id number] 1 2:49 PM CDT DERMATOPATHOLOGY LABORATORY Embedded Images 2:49 PM CDT DERMATOPATHOLOGY LABORATORY Pathology/Cytolo gy TISSUE SPECIMEN FROM SKIN / Unknown 06/10/2024 3:33 AM CDT 06/11/2024 1:48 PM CDT Reggie Mcintosh MD LAB - PATHOLOGY/CYTOLOGY ORD ERABLES Final Result DERMATOPATHOLOGY LABORATORY [facility] - Department of Dermatology [facility] Specialized Medicine [address] [place] [address], [address] [phone] documented in this encounter Visit Diagnoses Not on filedocumented in this encounter Care Teams Hearing Care Practitioner Relationship Specialty Start Date End Date Rodolfo Harris MD [address] [place] [address] PCP - General 12/03/15 documented as of this encounter
--- OUTSIDE RECORDS SUMMARY | 2025-03-02 00:37 | XMS_ITS | Referral Summary ---
Author Organization [facility] Address [address] [place] [address] Care Team Providers Care Surgical Garment Fitter Name Role Phone Ashley Tomlin MD Primary Care Provider Encounters Date Type Department Care Team Description 01/07/2025 Nurse Triage [facility] [address] [place] [phone] Ashley Tomlin MD 12/29/2024 9:45 AM CDT Office Visit [facility] [address] [place] [phone] Ashley Tomlin MD Rash (Primary Dx) 12/11/2024 Telephone [facility] Primary Care [address] [place] [phone] Ashley Tomlin MD Symptom Based Call from Last 3 Months Allergies No known [...] Immunization Administration Dates Next Due Influenza, Unspecified 12/29/2024(Deferr ed: Patient Refused),08/04/2024(Deferred: Patient Refused),07/22/2022,07/25/2021(Deferred: Patient Refused) Social History Tobacco [...] on file Legal Sex Female 8:17 AM HIGH PRESSURE FIRER Gender Identity Not on file Sexual Orientation Not on file Last Filed Vital Signs Vital Sign Reading Time Taken Comments Blood Pressure 126/84 12/29/2024 9:42 AM CDT Pulse 87 12/29/2024 9:42 AM CDT Temperature 36.5 C (97.7 F) 12/29/2024 9:42 AM CDT Respiratory Rate - - Oxygen Saturation 98% 12/29/2024 9:42 AM CDT Inhaled Oxygen Concentration - - Weight 74.8 kg (165 lb) 12/29/2024 9:42 AM CDT Height 162.6 cm (5' 4 ) 12/29/2024 9:42 AM CDT Body Mass Index 28.32 12/29/2024 9:42 AM CDT Plan of Treatment Not on file Procedures Procedure Name Priority Date/Time Associated Diagnosis Comments PAP AND HPV, REFLEX TO HPV GENOTYPES Routine 11/03/2024 11:28 AM HIGH PRESSURE FIRER Cervical cancer screening MAMMOGRAPHY Routine 11/09/2022 COLONOSCOPY Routine 05/07/2018 from Last 3 Months or Most Recently Relevant to Health Maintenance Results * Pap and HPV, reflex to HPV Genotypes (11/03/2024 11:28 AM HIGH PRESSURE FIRER) Clinical indication Comment [facility] - Comment: NEGATIVE FOR INTRAEPITHELIAL LESION OR MALIGNANCY. CELLULAR CHANGES ASSOCIATED WITH ATROPHY ARE PRESENT. Specimen adequacy: Comment [facility] - 01 Comment: Satisfactory for evaluation. Endocervical component may not be distinguished in cases of atrophy. Clinician provided ICD10 Comment [facility] - Comment:Z12.4 Performed by Comment [facility] - 01 [...] not performed. Thin prep-Endocervical 11/03/2024 11:28 AM HIGH PRESSURE FIRER 11/03/2024 Narrative [facility] - 11/05/2024 4:09 PM HIGH PRESSURE FIRER Performed at: - [address] [id number] Poacher Operator: Leandra Hodgson MD, Phone: [phone] Performed at: - [address] [id number] Poacher Operator: Leandra Hodgson MD, Phone: [phone] Specimen Comment: Source.............Cervix;Endocervix Specimen Comment: No. of containers..01 ThinPrep Vial us Ashley Mcdermott MD LAB CYTOLOGY ORDERABLES Final Result [facility] - 01 LAB ANGELO 02 * (ABNORMAL) MAMMOGRAPHY (11/09/2022) Mammography Abnormal Historical Provider HEALTH MAINTENANCE Final Result * [facility] COLONOSCOPY (05/07/2018) Scribed Colonoscopy Normal Historical Provider HEALTH MAINTENANCE Final Result from Last 3 Months or Most Recently Relevant to Health Maintenance Insurance ANTHEM ACCESS ANTHNEWLINE SOFTWARE ACCESS ANTH ACCESS Care Teams Surgical Garment Fitter Relationship Specialty Start Date End Date Ashley Tomlin MD [address] [place] [address] PCP - General Internal Medicine 08/22/22
--- OUTSIDE RECORDS SUMMARY | 2025-03-02 00:37 | XMS_ITS | Clinical Summary ---
Author Organization [facility] Address [address] [place] [address] Phone Care Team Providers Care Senior Engineering Specialist Name Role Phone Rodolfo Harris MD Primary Care Provider + Allergies No known active allergies Medications hydrOXYzine HCL (ATARAX) 25 mg tablet Take 1 Tablet (25 mg) by mouth 3 times daily as needed for Itching or Anxiety. 30 Tablet 12/13/2024 8:59 PM CRUSHER FOREMAN 12/13/2024 Active Active Problems Patient Care Coordination No te Formatting of this note migh t be different from the original. Srinivasa Hodges MD--Petroleum Refinery Worker ([facility] @ ) Dennis Quiroz MD--Petroleum Refinery Worker ([facility] @ ) Problem Noted Date Diagnosed Date Hyperlipidemia 10/26/2024 History of palpitations 04/16/2023 Pain of left upper extremity 05/14/2018 Resolved Problems Problem Noted Date Diagnosed Date Resolved Date Palpitations 05/14/2018 10/26/2024 Encounters Date Type Department Care Team Description 02/10/2025 External Device Data [facility] ABSTRACTION Provider, Abstract 02/10/2025 External Device Data [facility] ABSTRACTION Provider, Abstract 02/10/2025 External Device Data [facility] ABSTRACTION Provider, Abstract 01/13/2025 External Device Data [facility] ABSTRACTION Provider, Abstract 01/13/2025 External Device Data [facility] ABSTRACTION Provider, Abstract 01/13/2025 External Device Data [facility] ABSTRACTION Provider, Abstract 01/07/2025 External Device Data [facility] ABSTRACTION Provider, Abstract 12/27/2024 External Device Data [facility] ABSTRACTION Provider, Abstract 12/26/2024 External Device Data [facility] ABSTRACTION Provider, Abstract 12/23/2024 External Device Data [facility] ABSTRACTION Provider, Abstract 12/16/2024 External Device Data ST[facility] ABSTRACTION Provider, Abstract 12/16/2024 External Device Data ST[facility] ABSTRACTION Provider, Abstract 12/16/2024 External Device Data STL ABSTRACTION Provider, Abstract 12/13/2024 7:19 PM CRUSHER FOREMAN - 12/13/2024 8:44 PM CRUSHER FOREMAN Emergency [facility] Emergency Department [address] [place] [phone] Zenon Langley MD Maculopapular rash, generalized (Primary Dx); Stressful life event affecting family Discharge Disposition: Home or Self Care 12/13/2024 Travel 12/09/2024 External Device Data [facility] ABSTRACTION Provider, Abstract from Last 3 Months Family History Medical [...] Comments Blood Pressure 141/72 12/13/2024 8:22 PM CRUSHER FOREMAN Pulse 98 12/13/2024 8:22 PM CRUSHER FOREMAN Temperature 36.7 C (98 F) 12/13/2024 8:22 PM CRUSHER FOREMAN Respiratory Rate 20 12/13/2024 8:22 PM CRUSHER FOREMAN Oxygen Saturation 100% 12/13/2024 8:22 PM CRUSHER FOREMAN Inhaled Oxygen Concentration - - Weight 73 kg (161 lb) 10/10/2024 12:52 PM CRUSHER FOREMAN Height 167.6 cm (5' 6 ) 10/10/2024 12:52 PM CRUSHER FOREMAN Body Mass Index 25.99 10/10/2024 12:52 PM CRUSHER FOREMAN Plan of Treatment Upcoming Encounters Date Type Department Care Team (Late st Contact Info) Description 10/12/2025 1:30 PM CRUSHER FOREMAN Office Visit [facility] [address] [place] [address] Srinivasa Hodges MD [address] [place] [address] Health Maintenance Due Date Last Done Comments Pre-Diabetes and Diabetes Screening 1970 DTAP/TDAP/TD VACCINES (1 - Tdap) 1989 HEPATITIS B VACCINES (1 of 3 - 19+ 3-dose series) 03/22 HPV/Cotest (21-29) 1991 CERVICAL CANCER SCREENING 2000 HPV/Cotest (30-65) 2000 PAP SMEAR 2000 COLORECTAL SCREENING 2015 Colorectal Cancer Screening 2015 FIT-DNA Q 3 years 2015 FIT/FOBT Q 1 year 2015 Flex Sig/CT Colonography Q 5 years 2015 ZOSTER VACCINE (1 of 2) 2020 BREAST CANCER SCREENING 11/02/2022 11/02/2021 INFLUENZA VACCINE (#1) 2024 Insurance RX [employer] PL[employer] (INTERNAL) [facility] [employer] RX [employer] Express RX [employer] Commercial Care Teams Senior Engineering Specialist Relationship Specialty Start Date End Date Rodolfo Harris MD [address] [place] [phone] PCP - General Internal Medicine 04/29/18
--- OUTSIDE RECORDS SUMMARY | 2025-03-02 00:37 | XMS_ITS | Clinical Summary ---
Author Organization [facility] [employer] Address [address] [place] [address] Care Team Providers Care Circus Train Supervisor Name Role Phone Rodolfo Harris MD Primary Care Provider [phone] Source Comments [facility] [employer],non-[facility] Affiliates and Associated Physician Practices is amultiple site organization consisting of ambulatory clinics and hospital sitesin [place], [place], [place] and [place]. This disclosure is being madepursuant to the Care Everywhere program and may not contain all information available regarding this patient. Last updated 18.[facility] [employer] Family History Medical History Relation Name Comments [...] on file Legal Sex Female 6:02 PM CONTROL SYSTEMS SPECIALIST Gender Identity Not on file Sexual Orientation [...] VACCINE (1 - 2023-2 5 season) 2024 DEPRESSION SCREENING 10/22/2024 INFLUENZA VACCINE (Season Ended) 2025 HIB VACCINE Aged Out No longer eligi ble based on patient's age to complete this topic HPV VACCINE Aged Out No longer eligi ble based on patient's age to complete this topic MENINGOCOCCAL (Group B) VACC INE SHARED DECISION-MAKING Aged Out No longer eligibl e based on patient's age to complete this topic MENINGOCOCCAL GROUPS A/C/Y/W VACCINE Aged Out No longer eligible b ased on patient's age to complete this topic Insurance ANTH Care Teams Circus Train Supervisor Relationship Specialty Start Date End Date Rodolfo Harris MD [address] [place] [address] PCP - General 12/03/15
--- OUTSIDE RECORDS SUMMARY | 2025-03-02 00:37 | XMS_ITS | Clinical Summary ---
Author Organization [facility] [facility] Address [address] [place] [address] Care Team Providers Care Chassis Mechanic Name Role Phone Ashley Tomlin MD Primary [...] Department Care Team Description 01/07/2025 Nurse Triage [facility] Primary Care [address] [place] [phone] Ashley Tomlin MD 12/29/2024 9:45 AM CDT Office Visit [facility] Primary Care [address] [place] [phone] Ashley Tomlin MD Rash (Primary Dx) 12/11/2024 Telephone [facility] Primary Care [address] [place] [phone] Ashley Tomlin MD Symptom Based Call from Last 3 Months Immunizations Immunization Administration Dates Next Due Influenza, Unspecified 12/29/2024(Deferr ed: Patient Refused),08/04/2024(Deferred: Patient Refused),07/22/2022,07/25/2021(Deferred: Patient Refused) Family History Medical [...] on file Legal Sex Female 8:17 AM PROFESSOR OF 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 ENGINEERING Gender Identity Not on file Sexual Orientation [...] 12/29/2024 9:42 AM CDT Plan of Treatment Health Maintenance Due Date Last Done Comments Hepatitis C Screening 1970 DTaP/Tdap/Td Vaccine (1 - Tdap) 1981 Hepatitis B Screening 1988 Zoster Vaccine (1 of 2) 2020 Breast Cancer Screening-Mammogram 11/09/2023 11/09/2022, 11/02/2021 Influenza Vaccine (#1) 2025 07/22/2022 Postp oned from 06/22/2024 (Patient declined, but will receive in the future) Depression Screening 08/04/2025 08/04/2024, 04/16/2024, 04/09/2023, Additional [...] TO HPV GENOTYPES Routine 11/03/2024 11:28 AM PROFESSOR OF 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 ENGINEERING Cervical cancer screening MAMMOGRAPHY Routine 11/09/2022 COLONOSCOPY Routine 05/07/2018 from Last 3 Months or Most Recently Relevant to Health Maintenance Results * Pap and HPV, reflex to HPV Genotypes (11/03/2024 11:28 AM PROFESSOR OF 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 ENGINEERING) Clinical indication Comment [facility] - 01 Comment: [...] not performed. Thin prep-Endocervical 11/03/2024 11:28 AM PROFESSOR OF 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 ENGINEERING 11/03/2024 Narrative [facility] - 11/05/2024 4:09 PM PROFESSOR OF 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 ENGINEERING Performed at: - [address] [id number] Computer Aided Design Operator: Leandra Hodgson MD, Phone: [phone] Performed at: - [address] [id number] Computer Aided Design Operator: Leandra Hodgson MD, Phone: [phone] Specimen Comment: Source.............Cervix;Endocervix Specimen Comment: No. of containers..01 ThinPrep Vial Ashley Mcdermott MD LAB CYTOLOGY ORDERABLES Final Result Performing Organization Address City/State/[facility] Co de [facility] Number [facility] - 01 LAB ANGELO 02 * (ABNORMAL) MAMMOGRAPHY (11/09/2022) Mammography Abnormal Historical Provider HEALTH MAINTENANCE Final Result * COLONOSCOPY (05/07/2018) Scribed Colonoscopy Normal Historical Provider HEALTH MAINTENANCE Final Result from Last 3 Months or Most Recently Relevant to Health Maintenance Insurance ANTHEM ACCESS ANTHEM ACCESS ANTHEM ACCESS Care Teams Chassis Mechanic Relationship Specialty Start Date End Date Ashley Tomlin MD [address] [place] [id number] PCP - General Internal Medicine 08/22/22
[2025-03-02 06:52] VITALS: BP 114/71; PULSE 94; RESP 18; TEMP 36.1; O2SAT 99; BMI 26.3
[2025-03-02] MEDS: LACTATED RINGERS 1,000 ML 150 ML IV CONT (07:09)
--- NOTE | 2025-03-02 07:18 | WPDANESEPPF ---
Anes - Initial Pre Proc Eval Procedure: Operation Date: 03/02/25 08:00 Proposed Procedures p Esophagogastroduodenoscopy&Screen Colon - Jameson Durand MD Date/Time: 03/02/25 07:18 Surgeon: Jameson Durand MD Pre Op Diagnosis: Ulcer of esophagus w/o bleeding, rt up quad pain Patient Data Age: 54 Gender: F Height: 1.68 m Weight: 74 kg Last Vital Signs Temp 36.1 C L 03/02/25 06:52 Pulse 94 03/02/25 06:52 Resp 18 03/02/25 06:52 BP 114/71 03/02/25 06:52 Pulse Ox 99 03/02/25 06:52 O2 Del Method Room Air 03/02/25 06:52 Allergies Allergy/AdvReac Type Severity Reaction Status Date / Time amoxicillin Allergy Unknown unknown Verified 03/02/25 06:51 Home Medications ?Medication ?Instructions ?Recorded ?Confirmed ?Type omeprazole 20 mg capsule,delayed 20 mg PO DAILY 1 month #30 caps 10/09/24 03/02/25 Rx release sodium,potassium,mag sulfates 17.5 See Rx Instructions PO .COMPLEX 10/13/24 03/02/25 Rx gram-3.13 gram-1.6 gram oral soln #354 mL (Suprep Bowel Prep Kit) ondansetron HCl 4 mg tablet 4 mg PO Q6H PRN nausea and 12/04/24 Rx vomiting #4 tabs Patient hx anesthesia problems: none Family hx anesthesia problems: none Results Review: All pre-operative results and documents have been reviewed as part of the pre-operative evaluation. [facility] Past Medical History Medical History Screening for colon cancer RUQ pain Hormone replacement therapy (HRT) Family History Family History Mother Hypertension Family history of hypothyroidism Family history of thyroid disease Father Family history of elevated blood lipids Family history of sleep apnea Grandparent Carcinoma of colon Social History Social History Smoking status: Never smoker Alcohol intake: never Substance use: never Substance use type: does not use Living arrangements: with family Spiritual care concerns: No Anes - Eval Final PreProcedure Day of Procedure 03/02/25 07:18 Patient weight: overweight Heart: regular rate and rhythm Lungs: clear to auscultation Airway: Mallampati scale class II Neurological: alert and oriented Last oral intake: >/= 8 hours ASA classification: II Emergent: no Anesthetic plan: proceed Anesthesia type and monitoring: general GIVS and standard monitoring Results Review: All pre-operative results and documents have been reviewed as part of the pre-operative evaluation. Informed Consent: The patient's anesthetic plan and its attendant risks and benefits were discussed with the patient/family/POA. Questions were solicited and answers provided to the satisfaction of the patient/family/POA.
--- NOTE | 2025-03-02 07:43 | PM.HPGS ---
History of Present Illness History of Present Illness Consent: Risks, benefits, and alternatives have been discussed and questions answered. Patient agrees to proceed with procedure. Chief complaint: Ulcer of esophagus w/o bleeding, rt up quad pain Narrative: Dolly Stanton is a 54 year old female with gerd, last egd 2018, bx negative for celiac, recently with more dyspepsia but about 1 month ago started ppi and better, last colonoscopy 2018, grandfather had colon cancer at 51 yo Review of Systems Review of Systems: All systems reviewed & are unremarkable except as noted in HPI and below PMFSH Past Medical History Medical History (Updated 03/02/25 @ 07:44 by Jameson Durand MD) GERD (gastroesophageal reflux disease) Screening for colon cancer RUQ pain Hormone replacement therapy (HRT) Family History Family History Mother Hypertension Family history of hypothyroidism Family history of thyroid disease Father Family history of elevated blood lipids Family history of sleep apnea Grandparent Carcinoma of colon Social History Social History Smoking status: Never smoker Alcohol intake: never Substance use: never Substance use type: does not use Living arrangements: with family Spiritual care concerns: No Meds Home Medications and Allergies Home Medications ?Medication ?Instructions ?Recorded ?Confirmed ?Type omeprazole 20 mg capsule,delayed 20 mg PO DAILY 1 month #30 caps 10/09/24 03/02/25 Rx release sodium,potassium,mag sulfates 17.5 See Rx Instructions PO .COMPLEX 10/13/24 03/02/25 Rx gram-3.13 gram-1.6 gram oral soln #354 mL (Suprep Bowel Prep Kit) ondansetron HCl 4 mg tablet 4 mg PO Q6H PRN nausea and 12/04/24 Rx vomiting #4 tabs Allergies Allergy/AdvReac Type Severity Reaction Status Date / Time amoxicillin Allergy Unknown unknown Verified 03/02/25 06:51 Vital Signs Vital Signs - 24 hr 03/02/25 06:52 Temperature 97 F L Pulse Rate 94 Respiratory Rate 18 Blood Pressure 114/71 Pulse Oximetry 99 Oxygen Delivery Room Air Exam Const: General: comfortable and no acute distress HENMT: Face/Nose/Sinus: Normal nares present Eyes: General: appearance normal, both eyes and all related structures Neck: Neck: no JVD Resp: Auscultation: clear to auscultation bilaterally Cardio: Rate: regular rate Rhythm: regular rhythm GI: Inspection: non-distended GI Palp: Yes Soft to palpation Skin: General skin exam: normal color Neuro: General: gait normal Speech: normal speech Extrem: General: normal to inspection Psych: Mental Status: mental status grossly normal Assessment and Plan Assessment and plan (1) GERD (gastroesophageal reflux disease): Code(s): K21.9 - Gastro-esophageal reflux disease without esophagitis Status: Acute Assessment and Plan: egd with bx (2) Screening for colon cancer: Code(s): Z12.11 - Encounter for screening for malignant neoplasm of colon Status: Acute Assessment and Plan: colonoscopy
--- NOTE | 2025-03-02 07:49 | SUR.OPER ---
EGD: [id number] Colon: [id number]
[2025-03-02 08:06] VITALS: BP 119/76; PULSE 67; RESP 18; O2SAT 100
[2025-03-02 08:16] VITALS: BP 112/69; PULSE 64; RESP 17; O2SAT 100
[2025-03-02 08:26] VITALS: BP 122/76; PULSE 62; RESP 16; O2SAT 100
== END 2025-03-02 08:36 | disposition home or self-care (01) ==
PROVIDERS: PCP Internal Medicine; Referring Provider Nurse Practitioner Family; Visit Provider Internal Medicine Gastroenterology
PROC: 0DJ08ZZ Inspection of Upper Intestinal Tract, Via Natural or Artificial Opening Endoscopic (ICD-10-PCS; CPT 45378; principal; 2025-03-02 08:00)
DX: Z12.11 Encounter for screening for malignant neoplasm of colon (principal); K63.5 Polyp of colon; K64.8 Other hemorrhoids; Z80.0 Family history of malignant neoplasm of digestive organs; K21.9 Gastro-esophageal reflux disease without esophagitis
CPT/HCPCS: 45385; 43239; 88305; J2003; J2704; J7120